=== PATIENT | male | born 1985 | race Two or more races ===

== ENCOUNTER 2018-04-24 17:04 | Emergency (ER) | payer MEDICAID, OTHER ==
[~2018-04-24] VITALS: Ht 175.3 cm; Wt 98.0 kg
[2018-04-24 18:34] LABS: Basophils # (auto) 0 uL; Basophils % (auto) 0.2 % (0.0-2.0); Eosinophils # (auto) 0.1 uL; Eosinophils % (auto) 0.7 % (0.0-7.0); Hematocrit 46.1 % (41.0-53.0); Hemoglobin 15.8 g/dL (13.5-17.5); Lymphocytes # (auto) 1.3 uL; Lymphocytes % (auto) 10.2 % (10.0-50.0); Mean Corpuscular Hemoglobin 30.6 pg (28.0-32.0); Mean Corpuscular Hgb Conc. 34.3 g/dL (32.0-36.0); Mean Corpuscular Volume 89.4 fL (80.0-100.0); Monocytes # (auto) 1.2 uL; Monocytes % (auto) 8.8 % (0.0-12.0); Neutrophils # (auto) 10.5 uL; Neutrophils % (auto) 80.1 % (37.0-80.0); Platelet Count (auto) 274 10^3/uL (140-450); Red Blood Cells 5.16 10^6/uL (4.5-5.90); Red Cell Distribution Width 13.8 % (11.8-14.3); White Blood Cell 13.1 10^3/uL (4.4-10.8)
[2018-04-24] MEDS: MORPHINE SULF INJ 2 MG/ML SYRINGE 1ML ONE ×2 (18:41→19:19)
[2018-04-24] MEDS ORDERED: LIDOCAINE 1% (LOCAL ANESTH.) PF 5ml SDV IJ ONE (18:45)
[2018-04-24] MEDS ORDERED: BUPIVACAINE 0.25% INJ 50ML VIAL IJ ONE (18:45)
[2018-04-24] MEDS ORDERED: MORPHINE SULFATE 8mg/ml INJ SDV IV ONE (18:45)
[2018-04-24 18:48] LABS: INR 0.98 (0.9-1.15); Partial Thromboplastin Time 27.8 sec (23.78-33.04); Prothrombin Time 10.5 sec (9.27-12.13)
[2018-04-24] MEDS ORDERED: LIDOCAINE 1% (LOCAL ANESTH.) PF 5ml SDV ID ONE (19:00)
[2018-04-24] MEDS ORDERED: TETANUS-DIPTH-ACEL PERTUSSIS 0.5ML SYRG IM ONE (19:00)
[2018-04-24] MEDS ORDERED: ceFAZolin 1GM/100ML 100 ML IV ONE (19:00)
[2018-04-24] MEDS ORDERED: BUPIVACAINE 0.25% INJ 50ML VIAL ID ONE (19:00)
[2018-04-24] MEDS ORDERED: NEOMYCIN-BACITRACIN-POLYM UNITDOSE PKG TOP OINT TOP ONE ×2 (19:00→20:45)
[2018-04-24] MEDS ORDERED: LIDOCAINE 1% HCL (LOCAL ANESTH.) INJ 20ML MDV ONE (19:05)
[2018-04-24 19:06] LABS: Albumin 3.9 g/dL (3.4-5.0); Calcium 8.6 mg/dL (8.5-10.1); Potassium 3.8 mmol/L (3.5-5.1)
[2018-04-24 19:09] LABS: Bilirubin, Total 0.4 mg/dL (0.2-1.0); Total Protein 7.9 g/dL (6.4-8.2)
[2018-04-24 20:55] VITALS: BP 132/83
== END 2018-04-24 22:21 | disposition home or self-care (01) ==
LOC: ER 17:13
DX: S62.610A Displaced fracture of proximal phalanx of right index finger, initial encounter for closed fracture (principal); S62.612A Displaced fracture of proximal phalanx of right middle finger, initial encounter for closed fracture; S61.210A Laceration without foreign body of right index finger without damage to nail, initial encounter; S61.212A Laceration without foreign body of right middle finger without damage to nail, initial encounter; W31.89XA Contact with other specified machinery, initial encounter; Y93.89 Activity, other specified; Y92.69 Other specified industrial and construction area as the place of occurrence of the external cause; Y99.8 Other external cause status
CPT/HCPCS: 12045; 29125; 36415; 73130; 80053; 85025; 85610; 85730; 90471; 90715; 94761; 96365; 96375; 99285; J0690; J2001; J2270; J3490

== ENCOUNTER 2019-11-22 06:20 | Emergency (ER) | payer SELFPAY ==
[~2019-11-22] VITALS: Ht 175.3 cm; Wt 113.4 kg
[2019-11-22 06:39] VITALS: BP 132/85
== END 2019-11-22 09:23 | disposition home or self-care (01) ==
LOC: ER 06:20
DX: J06.9 Acute upper respiratory infection, unspecified (principal)
CPT/HCPCS: 71046